=== PATIENT | female | born 1975 | race Caucasian/White ===

== ENCOUNTER → 2018-06-30 | Outpatient (CLI) | payer BC ==
--- NOTE | 2018-07-01 12:29 | MM ---
Reason for exam: screening (asymptomatic). Last mammogram was performed 3 years and 10 months ago. History: Patient is postmenopausal and has history of other cancer at age 29. Family history of breast cancer in grandmother. Took progesterone for 6 months. Physical Findings: A clinical breast exam by your physician is recommended on an annual basis and results should be correlated with mammographic findings. MG 3D Screening Mammo W/Cad Bilateral CC and MLO view(s) were taken. Prior study comparison: September 04, 2014, bilateral MG screening mammo w CAD. There are scattered fibroglandular densities. No significant changes when compared with prior studies. ASSESSMENT: Benign, BI-RAD 2 RECOMMENDATION: Routine screening mammogram of both breasts in 1 year.
== END | disposition home or self-care (01) ==
LOC: RADMAMWWP 07:01
PROVIDERS: ATTEND Family Medicine
DX: Z12.31 Encounter for screening mammogram for malignant neoplasm of breast (principal)
CPT/HCPCS: 77063; 77067

== ENCOUNTER → 2021-06-04 | Outpatient (CLI) | payer BC | END | disposition home or self-care (01) | LOC: LABWHC1 14:00 | PROVIDERS: ATTEND Emergency Medicine | DX: U07.1 COVID-19 (principal) | CPT/HCPCS: 87635; C9803 ==

== ENCOUNTER → 2021-08-01 | Outpatient (CLI) | payer OTHER ==
--- NOTE | 2021-08-01 13:12 | XR ---
EXAMINATION TYPE: XR pelvis AP view, XR Hip Complete RT DATE OF EXAM: 08/01/2021 CLINICAL HISTORY: Pelvic and right hip pain after fall injury 3 days ago. TECHNIQUE: A single AP view of the pelvis is obtained. Two views of the right hip are obtained. COMPARISON: None. FINDINGS: There is no acute fracture/dislocation evident in the pelvis. The hip and sacroiliac joints appear s ymmetric and within normal limits. . Pubic symphysis is intact . The overlying soft tissue is unremar kable. Two views of right hip show no acute fracture or dislocation. No focal lytic or sclerotic lesion see n in the proximal right femur. The overlying soft tissue is unremarkable. IMPRESSION: There is no acute fracture or dislocation in the pelvis or right hip.
--- NOTE | 2021-08-01 13:14 | XR ---
EXAMINATION TYPE: XR ankle complete RT, XR foot complete RT DATE OF EXAM: 08/01/2021 CLINICAL HISTORY: Recent injury with pain TECHNIQUE: Frontal, lateral and oblique images of the right ankle and foot are obtained. COMPARISON: None. FINDINGS: There is no acute fracture/dislocation evident in the right ankle. Well-defined bony frag ments inferior to the medial malleolus could reflect products of old injury. The ankle mortise appear s within normal limits. The overlying soft tissue appears unremarkable. There is no acute fracture or dislocation evident in the right foot. The joint spaces in the right f oot are preserved. Some flexion of the toes is present. Overlying soft tissue is unremarkable. IMPRESSION: There is no acute fracture or dislocation in the right ankle or foot.
--- NOTE | 2021-08-01 13:15 | XR ---
EXAMINATION TYPE: XR cervical spine 5 views comp, XR wrist complete 4 views RT, XR shoulder complete 3 views RT DATE OF EXAM: 08/01/2021 COMPARISON: None HISTORY: 46-year-old female with fall 3 days ago, multiple sites of pain. S13.4XXA,S70.01XA,S30.0XXA ,S93.401A,S93.601A,S43.4 FINDINGS: CERVICAL SPINE: Mild facet spurring. No significant bony neuroforaminal narrowing on either side. No predental space widening or prevertebral soft tissue swelling. Very mild endplate spondylosis C5-C6. Alignment is palomo ntained. Normal odontoid view. Right shoulder: AC joint appears intact. Subacromial space preserved. No tendinous or bursal calcifications. No acute fracture, subluxation, or dislocation. Right wrist: The radiocarpal and distal radioulnar joint as well as the midcarpal compartment appear intact. No ac [place] fracture, subluxation, or dislocation. IMPRESSION: 1. Cervical spine: Mild spondylotic change. No acute fracture or malalignment seen. 2. Right shoulder: No acute osseous abnormality seen. 3. Right wrist: No acute osseous abnormality seen.
--- NOTE | 2021-08-01 13:18 | XR ---
EXAMINATION TYPE: XR lumbar spine 3V, XR knee complete 3 views bilateral DATE OF EXAM: 08/01/2021 Comparison: None Clinical History: 46-year-old female with pain after fall S13.4XXA,S70.01XA,S30.0XXA,S93.401A,S93.601 A,S43.4 Findings: Lumbar spine: Mild multilevel degenerative disc disease especially thoracolumbar junction. Some facet arthropathy m id to lower lumbar spine. Vertebral body heights are preserved and alignment is maintained. Knees: There is mild tricompartmental degenerative spurring on both sides. Extensor mechanisms appear intact . Small bilateral knee joint effusions. No acute fracture, subluxation, or dislocation is seen. Impression: 1. Lumbar spine: Some facet arthropathy mid to lower lumbar spine. Mild degenerative disc disease. No vertebral compression collapse or malalignment. 2. Knees: Mild bilateral tricompartmental degenerative spurring. Small knee joint effusions appear to be present. No acute osseous abnormality seen. If pain persists, MRI can be considered.
== END | disposition home or self-care (01) ==
LOC: RADXRMAIN 11:32
PROVIDERS: ATTEND Emergency Medicine
DX: M76.891 Other specified enthesopathies of right lower limb, excluding foot (principal); M76.892 Other specified enthesopathies of left lower limb, excluding foot; M47.816 Spondylosis without myelopathy or radiculopathy, lumbar region; M51.36 Other intervertebral disc degeneration, lumbar region; S99.911A Unspecified injury of right ankle, initial encounter; S99.921A Unspecified injury of right foot, initial encounter; M25.531 Pain in right wrist; M25.511 Pain in right shoulder; M47.812 Spondylosis without myelopathy or radiculopathy, cervical region; S79.911A Unspecified injury of right hip, initial encounter; R10.2 Pelvic and perineal pain
CPT/HCPCS: 72050; 72100; 72170; 73502

== ENCOUNTER → 2021-08-02 | Outpatient (CLI) | payer BC, OTHER | END | disposition home or self-care (01) | LOC: LABWHC1 15:10 | PROVIDERS: ATTEND Emergency Medicine | DX: Z20.822 Contact with and (suspected) exposure to COVID-19 (principal) | CPT/HCPCS: 87635 ==

== ENCOUNTER → 2021-08-06 | Outpatient (CLI) | payer MEDICAID | END | disposition home or self-care (01) | LOC: LABWHC1 12:17 | PROVIDERS: ATTEND Family Medicine | DX: Z20.822 Contact with and (suspected) exposure to COVID-19 (principal) | CPT/HCPCS: U0003; C9803 ==

== ENCOUNTER → 2021-08-12 | Outpatient (CLI) | payer OTHER ==
--- NOTE | 2021-08-12 14:09 | XR ---
EXAMINATION TYPE: XR wrist complete 4 views RT, XR foot complete 3 views RT DATE OF EXAM: 08/12/2021 COMPARISON: NONE HISTORY: 46-year-old female with history of fall at work, pain right-sided navicular region. FINDINGS: Wrist: Radiocarpal and distal radial ulnar joint as well as the midcarpal compartment appear intact. No acut e fracture, subluxation, or dislocation. Right foot: Subtalar joint is aligned. Bony spurring along the anterior medial aspect of the tibiotalar joint. Ti ny posterior calcaneal spur. No acute fracture, subluxation, or dislocation. IMPRESSION: 1. Wrist: No acute osseous abnormality seen. 2. Foot: Chronic appearing posttraumatic versus degenerative spurring along the anteromedial aspect o f the tibiotalar joint. No acute osseous abnormality seen.
== END | disposition home or self-care (01) ==
LOC: RADXRMAIN 13:23
PROVIDERS: ATTEND Emergency Medicine
DX: M25.531 Pain in right wrist (principal); M79.671 Pain in right foot; S69.91XA Unspecified injury of right wrist, hand and finger(s), initial encounter; S99.921A Unspecified injury of right foot, initial encounter

== ENCOUNTER → 2021-08-19 | Outpatient (CLI) | payer OTHER ==
--- NOTE | 2021-08-19 13:00 | MR ---
EXAMINATION TYPE: MR shoulder RT wo con DATE OF EXAM: 08/19/2021 COMPARISON: Plain film 08/01/2021 HISTORY: Pain, Sprain of right shoulder TECHNIQUE: Multiplanar, multisequence imaging of the right shoulder is performed without contrast. FINDINGS: Rotator Cuff: There is abnormal thickening of the rotator cuff, abnormal increased intrinsic signal, no definite discrete tear Acromioclavicular Joint: Intact Glenohumeral Joint: Intact Labrum: The labrum appears grossly intact given limitation of non-arthrogram study. Biceps Tendon: The long head of biceps is in normal location within bicipital groove, fluid signal is present along the long head of biceps tendon. Bone marrow signal: There is subchondral increased signal on T2, intermediate signal in T1 signal, co adama image 15, sagittal image 18, some associated linear serpiginous low signal present on all pulse sequences. Question some minimal cortical irregularity at this level. Other: There is fluid signal along the subscapularis muscle. IMPRESSION: Findings may represent subchondral fracture involving the proximal humerus, there may be posttraumati c contusion involving the rotator cuff
== END | disposition home or self-care (01) ==
LOC: RADMRIMAIN 08:09
PROVIDERS: ATTEND Emergency Medicine
DX: S43.401A Unspecified sprain of right shoulder joint, initial encounter (principal)

== ENCOUNTER → 2021-09-02 | Outpatient (CLI) | payer OTHER ==
--- NOTE | 2021-09-03 04:28 | MR ---
EXAMINATION TYPE: MR hand RT wo con DATE OF EXAM: 09/02/2021 COMPARISON: None HISTORY: Right hand/wrist pain, swelling, clicking, and limited movement since 07-29-21. Patient state d specifically thumb/ 1st metacarpal pain. Multiplanar multiecho imaging of the right hand without contrast. There is 5 mm rounded fluid collection anterior to the PIP joint of the middle finger consistent with a small synovial cyst. There is similar finding at the PIP joint of the index finger. The phalanges appear intact. Metacarpals are intact. There is no evidence of metacarpal fracture. The carpal bones appear fairly normal. Intercarpal joint spaces are normal. Radiocarpal joint appears anatomic. I see no focal bone destruction. IMPRESSION: Small synovial cysts at the index finger and middle finger PIP joint. No fracture seen. No evidence o f any significant arthritic disease. No evidence of a solid mass.
== END | disposition home or self-care (01) ==
LOC: RADMRIMAIN 14:50
PROVIDERS: ATTEND Orthopaedic Surgery Hand Surgery
DX: M71.341 Other bursal cyst, right hand (principal)

== ENCOUNTER → 2021-09-06 | Outpatient (CLI) | payer OTHER ==
--- NOTE | 2021-09-07 03:46 | MR ---
EXAMINATION TYPE: MR ankle RT wo con DATE OF EXAM: 09/06/2021 COMPARISON: None HISTORY: Right ankle pain since 07-29-21 due to twisting foot at work and falling, eval peroneal tendo n tear Multiplanar multiecho imaging of the right ankle without contrast. Achilles tendon is intact. The medial and lateral flexor tendons of the ankle appear intact. The luis armando jamal tendon appears intact. There is no retraction. There is no fluid around the tendons. There is mild anterior ankle joint space narrowing. The collateral ligaments appear intact. There is a mild ankle joint effusion. There is fluid collect ion posterior to the ankle joint measuring 13 mm. There is no evidence of a fracture. Subtalar joint appears intact. Calcaneus is intact. IMPRESSION: There is mild ankle joint space narrowing with joint effusion consistent with some osteoarthritis and synovitis. No evidence of ligament or tendon tear.
== END | disposition home or self-care (01) ==
LOC: RADMRIMAIN 16:19
PROVIDERS: ATTEND Orthopaedic Surgery Foot and Ankle Surgery
DX: M25.471 Effusion, right ankle (principal)

== ENCOUNTER → 2022-02-19 | Outpatient (CLI) | payer MEDICAID ==
--- NOTE | 2022-02-20 09:50 | MM ---
Reason for Exam: Screening (asymptomatic). Last mammogram was performed 3 year(s) and 7 month(s) ago. Patient History: Menarche at age 10. First Full-Term at age 28. Late child-bearing (after 28). Hysterectomy at age 41. Postmenopausal. Other cancer, age 29. Progesterone for 6 months. Maternal grandmother had breast cancer at or over age 50. Risk Values: Pallavi 5 year model risk: 1.3%. NCI Lifetime model risk: 12.3%. Film Views: Bilateral CC views were taken. Bilateral MLO views were taken. Bilateral MLONIP views were taken. Prior Study Comparison: 09/04/2014 Bilateral Screening Mammogram, [facility]. 06/30/2018 Bilateral Screening Mammogram, [facility]. Tissue Density: There are scattered fibroglandular densities. Findings: Analyzed By CAD. NIPPLES ANGLE LATERALLY....MLO RN PALLIATIVE AC VIEWS ADDED There is no suspicious group of microcalcifications or new suspicious mass in either breast. Overall Assessment: Benign, BI-RAD 2 Management: Screening Mammogram of both breasts in 1 year. A clinical breast exam by your physician is recommended on an annual basis and results should be correlated with mammographic findings. Electronically signed and approved by: Braeden Nichole M.D. Radiologis
== END | disposition home or self-care (01) ==
LOC: RADMAMWWP 07:09
PROVIDERS: ATTEND Family Medicine
DX: Z12.31 Encounter for screening mammogram for malignant neoplasm of breast (principal); Z78.0 Asymptomatic menopausal state; Z80.3 Family history of malignant neoplasm of breast
CPT/HCPCS: 77063; 77067

== ENCOUNTER 2022-02-28 08:04 | Day surgery (SDC) | payer OTHER ==
[2022-02-26 15:04] VITALS: BMI 32.8
--- NOTE | 2022-02-27 08:56 | HP ---
HISTORY AND PHYSICAL CHIEF COMPLAINT: Right shoulder pain and stiffness. 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 She had a fall. She notes persistent pain, stiffness and weakness ever since. She has tried therapy in addition to medications, without much relief. She notes persistent problems. PAST MEDICAL HISTORY: Significant for hypercholesterolemia and factor V deficiency. PAST SURGICAL HISTORY: Significant for hysterectomy. CURRENT MEDICATIONS: Lipitor, aspirin, hydrocodone, Toradol, tramadol. ALLERGIES: SHE DENIES DRUG ALLERGIES. FAMILY HISTORY: Significant for heart disease and cancer. SOCIAL HISTORY: Negative for current tobacco or alcohol use. REVIEW OF SYSTEMS: Sixteen-point review of systems is otherwise reviewed and noncontributory. PHYSICAL EXAMINATION: On examination, the patient is approximately 5 feet 3 inches, 185 pounds of endomorphic habitus. HEENT exam is nonfocal. Neck is supple. On examination of the right shoulder, she is tender about the anterior subacromial space. She has moderate crepitus. Active range of motion: Forward elevation to 100 degrees, external rotation with the arm at the side 55 degrees, internal rotation to L3. Motor strength 5 minus over 5 for abduction and external rotation. Passively I am able to forward-elevate her to 140 degrees. Impingement test, Neer test and Speed test are positive. Her distal neurovascular exam appears intact in the right upper extremity. Previous MRI of the right shoulder shows evidence of rotator cuff thickening at its insertion along with questionable subchondral fracture involving the greater tuberosity. No discrete rotator cuff tear is noted. IMPRESSION: 1. Right rotator cuff strain/occult fracture of the greater tuberosity. 2. Right shoulder adhesive capsulitis, traumatic. RECOMMENDATIONS: I talked to the patient at length regarding her condition along with treatment options. At this point she remains quite symptomatic, having stiffness and pain despite conservative measures. After thorough discussion, she opts to proceed with surgery. We will plan to proceed with arthroscopic evaluation with probable subacromial decompression, possible rotator cuff debridement in addition to manipulation under anesthesia. We will likely perform that as an outpatient procedure. Risks and benefits were discussed at length in layman's terms. MMODL / IJN: [id number] /
[~2022-02-28 08:04] MED LIST: DEXAMETHASONE SOD PHOSPHATE 4 MG/ML 1 ML VIAL IV ONE; HYDROmorphone 0.5 MG/0.5 ML SYRINGE IVP PRN; LACTATED RINGERS 1,000 ML IV SCH; MIDAZOLAM 2 MG/2 ML VIAL IV PRN; ONDANSETRON 4 MG/2 ML VIAL IVP ONE; SCOPOLAMINE 1 MG/72 HR PATCH TRANSDERM ONE
[2022-02-28] MEDS ORDERED: MIDAZOLAM 2 MG/2 ML VIAL IVP ONE (09:17)
[2022-02-28] MEDS ORDERED: fentaNYL (PF) 50 MCG/ML 2 ML AMP IVP ONE (09:17)
--- NOTE | 2022-02-28 09:33 | P.ANPRN ---
Procedure Note - Anesthesia - Nerve Block Performed Right Interscalene Single Time Out Performed: Yes Date of Procedure: 02/28/22 Procedure Start Time: 09:16 Procedure Stop Time: :26 Location of Patient: PreOp Indication: Acute Post-Operative Pain, Requested by Surgeon Sedation Type: Sedate with meaningful contact maintained Preparation: Sterile Prep, Sterile Dressing Position: Sitting Catheter: None Needle Types: Pajunk Needle Gauge: 21 Ultrasound used to visualize needle placement: Yes Ultrasound used to observe medication spread: Yes Injectate: 0.5% Ropivacaine (see comment for volume) (30 ml + decadron 4 mg) Blood Aspirated: No Pain Paresthesia on Injection Noted: No Resistance on Injection: Normal Image Stored and Saved: Yes Events: Uneventful and Well Tolerated
[2022-02-28] MEDS ORDERED: SUCCINYLCHOLINE CHLORIDE 100 MG/5 ML SYR IV ONE (09:58)
[2022-02-28] MEDS ORDERED: PHENYLEPHRINE-0.9% NACL SYG 1,000 MCG/10 ML SYRINGE ONE (09:58)
[2022-02-28] MEDS ORDERED: DEXAMETHASONE SOD PHOSPHATE 4 MG/ML 1 ML VIAL ONE (09:58)
[2022-02-28] MEDS ORDERED: LIDOCAINE 2% INJ 20 MG/ML (2 ML VIAL) ONE (09:58)
[2022-02-28] MEDS ORDERED: MIDAZOLAM 2 MG/2 ML VIAL ONE (09:58)
[2022-02-28] MEDS ORDERED: ROPIVACAINE 5 MG/ML 30 ML VIAL ONE (09:58)
[2022-02-28] MEDS ORDERED: fentaNYL (PF) 50 MCG/ML 2 ML AMP ONE (09:58)
[2022-02-28] MEDS ORDERED: PROPOFOL 10 MG/ML 20 ML VIAL IV ONE (09:58)
[2022-02-28] MEDS ORDERED: EPINEPHrine (PF) 1 ML in SODIUM CHLORIDE 0.9% IRRIGATIO 3,000 ML IRRIGATION ONE ×8 (10:31)
--- NOTE | 2022-02-28 11:07 | P.OP ---
Date of Procedure: 02/28/22 Preoperative Diagnosis: Right shoulder impingement/rotator cuff strain Postoperative Diagnosis: Partial-thickness rotator cuff tear, superior labral tear Procedure(s) Performed: Right shoulder arthroscopic subacromial decompression/rotator cuff debridement /biceps tenotomy Anesthesia: edwin GARVIN Surgeon: Skinny Banks Emergency Vehicle Technician #1: Roshan Kemp Estimated Blood Loss (ml): 10 Pathology: none sent Condition: stable Disposition: PACU Indications for Procedure: The patient's a 47-year-old female presents with progressive right shoulder pain and weakness after an injury at work in July 2021. She tried conservative measures without much relief. A discussion of risks and benefits of operative intervention versus continued conservative measures was made with patient To proceed with surgery. Operative risks to include infection, neurovascular i njury, development of blood clots, possible incomplete resolution of symptoms, possible worsening symptoms and need for subsequent procedures was discussed. Informed consent was obtained. Operative Findings: As below Description of Procedure: The patient was brought to the operating room, and after induction of general anesthesia was placed in a beachchair position. A preoperative interscalene block was placed for postoperative analgesia. I examined the right shoulder. There was no gross block to passive motion or gross glenohumeral instability. The right upper extremity was prepped and draped in normal fashion. The bony outlines the acromion, distal clavicle, and coracoid process were outlined with a skin marker. The glenohumeral joint was inflated with 50 mL of saline utilizing a spinal needle from posterior approach. A posterior portal was made through a 5 mm skin incision 1 cm medial and inferior to the posterior lateral b order time. A blunt trocar was used to easily into the joint. Diagnostic arthroscopy was performed. An anterior portal was made just lateral to the coracoid process entering the joint above the subscapularis tendon. The subscapularis tendon appeared to be intact. Anterior labrum was intact. The inferior recess was inspected. The posterior labrum was intact. The biceps anchor appeared to be detached from the superior labrum. It was elected to proceed with biceps tenotomy at this point. This was released off the superior labrum and allowed to retract to the bicipital groove. On inspection the rotator cuff, a partial thickness tear involving the supraspinatus was noted involving 10-15% of the tendon thickness. This was debrided back to a stable base with a motorized shaver. The remaining rotator cuff was intact and stable. The arthroscope was placed into the subacromial space. A lateral portal was made 2 centimeters inferior to the anterior lateral border of the acromion. The soft tissue on the undersurface of the acromion was debrided with a motorized shaver and electrocautery clearly defining the anterior medial and lateral borders as well as the distal clavicle. An anterior inferior acromioplasty was performed with a motorized esau starting anterolateral, then extending this posteriorly, then extending this medially. I converted to a flat acromion and this was verified in the posterior and lateral viewing portals. The rotator cuff was inspected. There was bursal thickening that was debrided with motorized shaver. The rotator cuff appeared to be intact on the bursal surface. The arthroscope was then removed. The portals were closed with simple 3-0 nylon sutures. A sterile dressing was applied in addition to a sling. The patient was then awoken from general anesthesia and transferred to recovery room in good condition. Blood loss was estimated at 10 mL. No complications were incurred. Sponge and needle counts were correct in the case. Roshan GREENE assisted and the major components of the case to include positioning, decompression, and debridement.
[2022-02-28] MEDS: MEPERIDINE 50 MG/ML SYRINGE IVP ONE ×2 (11:40→11:48)
[2022-02-28] MEDS ORDERED: KETOROLAC 15 MG/ML 1 ML VIAL IVP ONE (11:54)
[2022-02-28 12:15] VITALS: TEMP 98.6
[2022-02-28] MEDS ORDERED: ONDANSETRON 4 MG/2 ML VIAL ONE (13:07)
[2022-02-28] MEDS ORDERED: ONDANSETRON 4 MG/2 ML VIAL IVP ONE (13:17)
[2022-02-28 15:08] VITALS: BP 117/77; PULSE 87; RESP 18
== END 2022-02-28 15:04 | disposition home or self-care (01) ==
LOC: OR 08:04
PROVIDERS: ATTEND Orthopaedic Surgery
DX: S46.011A Strain of muscle(s) and tendon(s) of the rotator cuff of right shoulder, initial encounter (principal); S43.431A Superior glenoid labrum lesion of right shoulder, initial encounter; W18.30XA Fall on same level, unspecified, initial encounter; E78.00 Pure hypercholesterolemia, unspecified; D68.2 Hereditary deficiency of other clotting factors; E78.5 Hyperlipidemia, unspecified; Z90.710 Acquired absence of both cervix and uterus; Z79.82 Long term (current) use of aspirin; Z79.891 Long term (current) use of opiate analgesic; Z79.899 Other long term (current) drug therapy; Z82.49 Family history of ischemic heart disease and other diseases of the circulatory system; Z80.9 Family history of malignant neoplasm, unspecified
CPT/HCPCS: 64415; 76942; 29823; J2250; J1100; J2175; J0690; J2405; J0171; J3010; J2795; J1885; J2370; J0330; J2704; J2001

== ENCOUNTER → 2022-06-25 | Outpatient (CLI) | payer OTHER ==
--- NOTE | 2022-06-27 05:50 | MR ---
EXAMINATION TYPE: MR ankle RT wo con DATE OF EXAM: 06/25/2022 COMPARISON: 09/06/2021 HISTORY: Rt ankle pain, swelling Multiplanar multi echo imaging of the right ankle performed without contrast. Ankle mortise is anatomic. There is some metal artifact at the distal fibula and also in the anterior talus. No fracture line seen. Collateral ligaments appear intact. There is ankle joint effusion. The medial and lateral flexor tendons appear intact. The Achilles tendon appears normal. The plantar fas melissa appears normal. The calcaneus appears intact. There is slight increased ankle joint fluid. The di stal tibia is intact. IMPRESSION: There is some artifact from surgery at the distal fibula and the anterior talus. Mild ankle joint eff usion. Mild ankle joint space narrowing. No fracture seen. Ankle joint effusion slightly increased co mpared to old exam.
== END | disposition home or self-care (01) ==
LOC: RADMRIMAIN 11:36
PROVIDERS: ATTEND Orthopaedic Surgery Foot and Ankle Surgery
DX: M93.271 Osteochondritis dissecans, right ankle and joints of right foot (principal); M25.471 Effusion, right ankle

== ENCOUNTER → 2022-08-26 | Outpatient (CLI) | payer OTHER ==
--- NOTE | 2022-08-27 08:13 | MR ---
EXAMINATION TYPE: MR shoulder RT wo con DATE OF EXAM: 08/26/2022 COMPARISON: Prior MRI right shoulder August 19, 2021 HISTORY: Pain after falling injury. TECHNIQUE: Multiplanar, multisequence imaging of the right shoulder is performed without contrast. FINDINGS: Rotator Cuff: Abnormal signal in the distal supraspinatus tendon which appears thickened is redemonst rated. There is even more prominent from prior study with areas of partial tearing now identified as there are some small fluid collections noted for reference coronal image 14 and sagittal image 22. In fraspinatus tendon remains intact. Rotator cuff muscle bulk preserved. Acromioclavicular Joint: Mild capsular hypertrophy. Underlying fat plane maintained. No significant spurring. Glenohumeral Joint: Small to moderate-sized joint effusion. No significant spurring. Labrum: Superior labrum now completely torn. Biceps Tendon: The long head of biceps is in normal location within bicipital groove. There is tear f rom the labral anchor thought present with remnant tendon having central increased signal coronal christian ge 9. Findings new from prior. Bone marrow signal: Tiny subchondral cystic change superolateral humeral head redemonstrated Other: No additional significant abnormality is appreciated. IMPRESSION: 1. Severe tendinopathy distal supraspinatus tendon redemonstrated. Areas of partial tearing now noted . 2. New superior labral tearing and long head of biceps disruption/tear from the labral anchor from pr ior MRI.
== END | disposition home or self-care (01) ==
LOC: RADMRIMAIN 10:46
PROVIDERS: ATTEND Orthopaedic Surgery
DX: M75.111 Incomplete rotator cuff tear or rupture of right shoulder, not specified as traumatic (principal)

== ENCOUNTER → 2022-09-01 | Outpatient (CLI) | payer OTHER ==
--- NOTE | 2022-09-01 14:32 | MR ---
EXAMINATION TYPE: MR cervical spine wo con DATE OF EXAM: 09/01/2022 1:14 PM COMPARISON: NONE HISTORY: Neck and right shoulder pain, headaches, S/P shoulder surgery February 2022. Multiplanar MultiSpin echo imaging of the cervical spine was performed. Comparison: none C2-C3: No evidence for degenerative disc disease. No disc bulge/herniation or protrusion. No Canal stenosis. Foramina are patent bilaterally. C3-C4: No evidence for degenerative disc disease. No disc bulge/herniation or protrusion. No Canal stenosis. Foramina are patent bilaterally. C4-C5: No evidence for degenerative disc disease. No disc bulge/herniation or protrusion. No Canal stenosis. Foramina are patent bilaterally. C5-C6: Mild decreased signal and loss of height compatible with degenerative disc disease. Mild poste rior disc bulge. Mild effacement ventral thecal sac without evidence for disc herniation or central s tenosis. The neural foramina appear patent bilaterally. C6-C7: Mild decreased signal and loss of height compatible with degenerative disc disease. Mild poste rior disc bulge. Mild effacement ventral thecal sac without evidence for disc herniation or central s tenosis. The neural foramina appear patent bilaterally. C7-T1: No evidence for degenerative disc disease. No disc bulge/herniation or protrusion. No Canal stenosis. Foramina are patent bilaterally. Cervical segments are intact. There is normal alignment. Cervical spinal cord is of normal signal. Craniovertebral junction relationships are within normal limits. IMPRESSION: 1. Degenerative disc disease with disc bulging
== END | disposition home or self-care (01) ==
LOC: RADMRIMAIN 12:24
PROVIDERS: ATTEND Orthopaedic Surgery
DX: M50.122 Cervical disc disorder at C5-C6 level with radiculopathy (principal)
CPT/HCPCS: 72141

== ENCOUNTER → 2022-12-16 | Outpatient (CLI) | payer MEDICAID ==
--- NOTE | 2023-01-20 06:22 | CE ---
CARDIAC ELECTROPHYSIOLOGY REPORT REFERRING PHYSICIAN: Dr. Espinoza. INDICATION: Cardiac arrhythmia. FINDINGS: The patient was monitored for 30 days. The baseline rhythm appeared to be sinus mechanism. The patient did have multiple episodes of paroxysmal atrial tachycardia. The patient did have multiple episodes of sinus tachycardia and sinus bradycardia. No advanced AV block noted. No significant sinus pause or sinus arrest seen. No evidence of any atrial fibrillation or atrial flutter. CONCLUSION: This is a 30-day event monitor. The baseline rhythm is sinus mechanism. The patient did have multiple episodes of paroxysmal atrial tachycardia. MMODL / IJN: [id number] /
== END | disposition home or self-care (01) ==
LOC: RADECHMAIN 11:29
PROVIDERS: ATTEND Internal Medicine Interventional Cardiology
DX: I47.1 Supraventricular tachycardia (principal); R00.2 Palpitations
CPT/HCPCS: 93270

== ENCOUNTER → 2022-12-16 | Outpatient (CLI) | payer MEDICAID ==
[2022-12-16 20:13] LABS: T4, Free (Free Thyroxine) 1.03 ng/dL (0.800-1.800)
== END | disposition home or self-care (01) ==
LOC: LABWHC1 11:06
PROVIDERS: ATTEND Internal Medicine Interventional Cardiology
DX: D68.51 Activated protein C resistance (principal); R06.02 Shortness of breath; R00.0 Tachycardia, unspecified
CPT/HCPCS: 36415; 84439; 84443

== ENCOUNTER → 2023-01-01 | Outpatient (CLI) | payer MEDICAID ==
--- NOTE | 2023-01-01 17:32 | CA ---
Transthoracic Echo Report Name: Yudith Diop Age: 47 Gender: F : 1975 Exam Date: 01/01/2023 11:24 Exam Location: [facility] Ht (in): 63 Wt (lb): 195 Ordering Physician: Gera Espinoza MD ([id number]) Attending/Referring Phys: Gera Espinoza MD ([id number]) [employer] Eveline Altman RDCS Procedure CPT: Indications: R00.2 Cardiac Hx: Technical Quality: Fair Contrast 1: Total Dose (mL): Contrast 2: Total Dose (mL): MEASUREMENTS (Male / Female) Normal Values 2D ECHO LV Diastolic Diameter PLAX 3.7 cm 4.2 - 5.9 / 3.9 - 5.3 cm LV Systolic Diameter PLAX 2.3 cm IVS Diastolic Thickness 1.0 cm 0.6 - 1.0 / 0.6 - 0.9 cm LVPW Diastolic Thickness 1.1 cm 0.6 - 1.0 / 0.6 - 0.9 cm LV Relative Wall Thickness 0.6 RV Internal Dim ED PLAX 3.0 cm LA Volume 45.4 cm??? 18 - 58 / 22 - 52 cm??? M-MODE Aortic Root Diameter MM 3.1 cm LA Systolic Diameter MM 3.8 cm LA Ao Ratio MM 1.2 AV Cusp Separation MM 1.9 cm DOPPLER AV Peak Velocity 101.7 cm/s AV Peak Gradient 4.1 mmHg AV Mean Velocity 77.4 cm/s AV Mean Gradient 2.6 mmHg AV Velocity Time Integral 21.5 cm LVOT Peak Velocity 104.7 cm/s LVOT Peak Gradient 4.4 mmHg LVOT Velocity Time Integral 22.4 cm MV Area PHT 3.6 cm??? Mitral E Point Velocity 76.0 cm/s Mitral A Point Velocity 63.3 cm/s Mitral E to A Ratio 1.2 MV Deceleration Time 209.1 ms MV E' Velocity 10.6 cm/s Mitral E to MV E' Ratio 7.2 TR Peak Velocity 217.2 cm/s TR Peak Gradient 18.9 mmHg Right Ventricular Systolic Press 22.8 mmHg FINDINGS Left Ventricle Normal Left ventricular size, wall thickness, systolic function with no obvious regional wall motion abnormalities. Normal Left ventricular diastolic filling pattern. Left ventricular ejection fraction is estimated at 55-60 %. Right Ventricle Normal right ventricular size and function. Right ventricular systolic pressure within normal limits. Right Atrium Normal right atrial size. Left Atrium Normal left atrial size. Interatrial septal aneurysm. Mitral Valve Structurally normal mitral valve. No mitral stenosis, regurgitation or prolapse. Aortic Valve Trileaflet aortic valve. No aortic valve stenosis or regurgitation. Tricuspid Valve Structurally normal tricuspid valve. Mild tricuspid regurgitation. Pulmonic Valve Structurally normal pulmonic valve. Pericardium No pericardial effusion. Possible fat pad Aorta Normal size aortic root and proximal ascending aorta. CONCLUSIONS Normal LV size and systolic function. Mildly aneurysmal interatrial septum. Normal right ventricle. Mild mitral and tricuspid regurgitation. No pericardial effusion. Possible fat pad. No significant pulmonary hypertension Previewed by: Dr. Jose Vora MD (Electronically Signed) Final Date: 01 January 2023 17:32
--- NOTE | 2023-01-01 17:42 | CA ---
Exercise Stress Test Report Name: Yudith Diop Exam Date: 01/01/2023 11:05 Exam Location: [facility] Ht (in): 63 Wt (lb): 195 BSA: 1.91 Ordering Phys: Gera Espinoza MD Referring Phys: Gera Espinoza MD Technologist: Jose R Cabrales Age: 47 Gender: F : 1975 Procedure CPT: Indications: R00.2 ICD-10 Codes: Patient History: CHEST PAIN, DIFFICULTY IN BREATHING, PALPITATIONS, ELEVATED CHOLESTEROL LEVELS, FAMILY HX OF HEART DISEASE Medications: ATORVASTATIN, ASA, LIPITOR, TRAMADOL, TYLENOL Meds past 24 hrs: Pretest Chest Pain: STRESS TEST [facility] Protocol Exercise Duration (min:sec): 10:[address] Depressions (mm): Angina Score: Petty Score: Resting HR (bpm): 79 Peak HR (bpm): 167 Resting BP (mmHg): 117 / 84 Peak BP (mmHg): 191 / 70 MPHR: 171 Target HR: 145 % MPHR: 98 METS: 11.7 Total Dose: Peak Dose: Atropine: Double Product: 61147 BP Response: Stress Termination: MAX EXERTION/TARGET HR Stress Symptoms: NO SYMPTOMS Stress Summary: ECG ANALYSIS Resting ECG: Stress ECG: CONCLUSIONS Patient walked on a standard Wili protocol for a total duration of 10 minutes and achieved a maximum heart rate of 165 bpm which is more than 85% of predicted maximal. Baseline EKG revealed a normal sinus rhythm without significant ST-T changes. Patient did not have any anginal symptoms. Peak EKG as well as in recovery there were no ST segment changes to indicate ischemia. This is a negative stress test with excellent exercise capacity. The blood pressure changed from 117/84 -160/75 Dr. Jose Vora MD (Electronically Signed) Final Date: 01 January 2023 17:41
== END | disposition home or self-care (01) ==
LOC: RADNMMAIN 10:33
PROVIDERS: ATTEND Internal Medicine Interventional Cardiology
DX: I08.1 Rheumatic disorders of both mitral and tricuspid valves (principal); R00.2 Palpitations; Q21.10 Atrial septal defect, unspecified
CPT/HCPCS: 93017; 93306

== ENCOUNTER → 2023-01-02 | Outpatient (CLI) | payer OTHER, MEDICAID ==
[2023-01-02 15:19] LABS: Basophils # (A) 0.02 X 10*3/uL (0.00-0.10); Basophils % (A) 0.5 %; Eosinophils # (A) 0.13 X 10*3/uL (0.04-0.35); HCT 44.7 % (37.2-46.3); HGB 14.7 g/dL (12.0-15.0); Immature Grans, Automated 0.2 %; Lymphocytes # (A) 1.64 X 10*3/uL (0.90-5.00); Lymphocytes % (A) 37.4 %; MCH 30.7 pg (27.0-32.0); MCHC 32.9 g/dL (32.0-37.0); MCV 93.3 fL (80.0-97.0); Monocytes # (A) 0.28 X 10*3/uL (0.20-1.00); Monocytes % (A) 6.4 %; NRBC Per 100 WBC 0 /100 WBCS (0.0-0.0); Neutrophils % (A) 52.5 %; Platelet Count 253 X 10*3/uL (140-440); RBC 4.79 X 10*6/uL (4.10-5.20); RDW 12.2 % (11.5-14.5); WBC 4.38 X 10*3/uL (4.50-10.00)
[2023-01-02 15:37] LABS: African American GFR (CKD) 109.5 (60.0-200.0); Anion Gap 10.6 mmol/L (10.00-18.00); BUN/Creat Ratio 20.3 Ratio (12.00-20.00); Blood Urea Nitrogen 15.1 mg/dL (9.0-27.0); Calcium 9.3 mg/dL (8.7-10.3); Carbon Dioxide 26.6 mmol/L (20.0-27.5); Non-African American GFR(CKD) 94.5 (60.0-200.0); Potassium 4.5 mmol/L (3.5-5.5)
== END | disposition home or self-care (01) ==
LOC: LABWHC1 09:13
PROVIDERS: ATTEND Orthopaedic Surgery
DX: Z01.812 Encounter for preprocedural laboratory examination (principal); M75.41 Impingement syndrome of right shoulder
CPT/HCPCS: 36415; 80048; 85025

== ENCOUNTER 2023-01-09 09:04 | Day surgery (SDC) | payer MEDICAID, OTHER ==
--- NOTE | 2023-01-08 08:25 | P.HPOR ---
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 Subsequently she underwent right shoulder arthroscopy with biceps tenotomy and rotator cuff debridement using 2021. She's had increasing pain despite adequate rehabilitation. She is having pain with overhead use and at night. 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 History of Any Multi-Drug Resistant Organisms: None Reported Past Surgical History: Hysterectomy, Orthopedic Surgery (Right shoulder arthroscopy) Additional Past Surgical History / Comment(s): OCT 2021- RIGHT ANKLE TENDON REPAIR., ABDOMINALPLASTY(2009) Past Anesthesia/Blood Transfusion Reactions: No Reported Reaction, Motion Sickness Additional Past Anesthesia/Blood Transfusion Reaction / Comment(s): NERVOUS ABOUT AXILLARY BLOCK, LAST SURGERY PHRENIC NERVE WAS AFFECTED,BECAME SOB. Past Psychological History: No Psychological Hx Reported Smoking Status: Never smoker Past Alcohol Use History: None Reported Past Drug Use History: None Reported - Past Family History Father Family Medical History: Blood Disorder, Deep Vein Thrombosis (DVT), Pulmonary Embolus Additional Family Medical History / Comment(s): FACTOR 5 LEIDEN- AT AGE 49 FROM DVT AND PE. Medications and Allergies Home Medications Medication Instructions Recorded Confirmed Type Aspirin [Adult Low Dose Aspirin EC] 81 mg PO DAILY 02/26/22 01/05/23 History traMADol HCL 50 mg PO BID PRN 02/26/22 01/05/23 History Atorvastatin [Lipitor] 10 mg PO HS 01/05/23 01/05/23 History Allergies Allergy/AdvReac Type Severity Reaction Status Date / Time No Known Allergies Allergy Verified 01/05/23 13:20 Physical Examination - Shoulder right Tenderness with palpation: anterior Pain: with abduction, with forward flexion ROM: forward flexion: 100 degrees (100 actively, 145 passively) ROM: external rotation: 60 degrees Crepitus with motion: Yes Strength: abduction: 5/5 Strength: external rotation: 5/5 Tests: internal impingement tests: positive Results The patient is a well-developed well-nourished female, proximally 5 foot 3, 192 pounds of endomorphic habitus. HEENT exam is nonfocal, she has limited C-spine motion with positive Spurling's. She is nontender about the right elbow and wrist. Her distal neurovascular appears intact right upper extremity. - Diagnostic results Shoulder MRI: image reviewed (Right shoulder MRI from 08/26/2022 shows severe tendinopathy of the supraspinatus.) Assessment and Plan Assessment: Right shoulder impingement/rotator cuff tendinopathy/possible partial thickness tear Plan: I talked to the patient regarding her condition along with treatment options. She's tried extensive rehabilitation after her prior arthroscopy with persistence of her symptoms. After thorough discussion she has proceed with surgery. We'll plan to proceed with right shoulder arthroscopy with possible revision subacromial decompression along with bursectomy/rotator cuff debridement versus repair. Risks and benefits were discussed in layman's terms. We will perform that as an outpatient procedure.
[~2023-01-09 09:04] MED LIST changes: -HYDROmorphone 0.5 MG/0.5 ML SYRINGE IVP PRN; +LIDOCAINE 1% (10MG/ML) FOR IV START INTRADERMA PRN; -SCOPOLAMINE 1 MG/72 HR PATCH TRANSDERM ONE
[2023-01-09] MEDS ORDERED: MIDAZOLAM 2 MG/2 ML VIAL IVP ONE (10:51)
[2023-01-09] MEDS ORDERED: ROPIVACAINE 5 MG/ML 30 ML VIAL ONE (11:10)
[2023-01-09] MEDS ORDERED: SUCCINYLCHOLINE CHLORIDE 200 MG/10 ML VIAL IV ONE (11:10)
[2023-01-09] MEDS ORDERED: SODIUM CHLORIDE 0.9% (PF) 10 ML VIAL ONE (11:10)
[2023-01-09] MEDS ORDERED: MIDAZOLAM 2 MG/2 ML VIAL ONE (11:10)
[2023-01-09] MEDS ORDERED: PHENYLEPHRINE-0.9% NACL SYG 1,000 MCG/10 ML SYRINGE ONE (11:10)
[2023-01-09] MEDS ORDERED: LIDOCAINE 4% LTA KIT (4 ML) TOPICAL ONE (11:10)
[2023-01-09] MEDS ORDERED: LIDOCAINE 2% INJ 20 MG/ML (2 ML VIAL) ONE (11:10)
[2023-01-09] MEDS ORDERED: fentaNYL (PF) 50 MCG/ML 2 ML AMP ONE (11:10)
[2023-01-09] MEDS ORDERED: PROPOFOL 10 MG/ML 20 ML VIAL IV ONE (11:10)
[2023-01-09] MEDS ORDERED: EPINEPHrine (PF) 1 ML in SODIUM CHLORIDE 0.9% IRRIGATIO 3,000 ML IRRIGATION ONE ×8 (11:15)
--- NOTE | 2023-01-09 12:55 | P.ANPRN ---
Procedure Note - Anesthesia - Nerve Block Performed Right Interscalene Single Time Out Performed: Yes Date of Procedure: 01/09/23 Procedure Start Time: 10:50 Procedure Stop Time: 10:54 Location of Patient: PreOp Indication: Acute Post-Operative Pain, Requested by Surgeon Sedation Type: Sedate with meaningful contact maintained Preparation: Sterile Prep Position: Supine Needle Types: Pajunk Ultrasound used to visualize needle placement: Yes Ultrasound used to observe medication spread: Yes Blood Aspirated: No Pain Paresthesia on Injection Noted: No Resistance on Injection: Normal Image Stored and Saved: Yes Events: Uneventful and Well Tolerated (Ropivacaine 0.5% 20 mL plus dexamethasone 4 mg)
--- NOTE | 2023-01-09 13:03 | P.OP ---
Date of Procedure: 01/09/23 Preoperative Diagnosis: Right rotator cuff tendinosis/partial thickness tear Postoperative Diagnosis: Same Procedure(s) Performed: Right shoulder arthroscopic revision subacromial decompression/rotator cuff debridement/rotator cuff repair Implants: Arthrex 4.75 mm swivel lock anchor 2 Anesthesia: edwin GARVIN Surgeon: Skinny Banks Human Resources Support Specialist #1: Roshan Kemp Estimated Blood Loss (ml): 10 Pathology: none sent Condition: stable Disposition: PACU Indications for Procedure: The patient's a 47-year-old female who presents with persistent/progressive right shoulder pain despite previously undergoing arthroscopy with subacromial decompression and biceps tenotomy. She underwent adequate rehabilitation with worsening of her symptoms. A discussion of the risks and benefits of operative intervention versus continued conservative measures was made with patient. She opted to proceed with surgery. Operative risks to include infection, neurovascular injury, development of blood clots, possible postoperative stiffness, possible need for subsequent procedures was discussed. Informed consent was obtained. Operative Findings: As below Description of Procedure: The patient was brought to the operating room, and after induction of general anesthesia was placed in a beachchair position. A preoperative interscalene block was placed for postoperative analgesia. I examined the right shoulder. There was no gross block to passive motion or gross glenohumeral instability. The right upper extremity was prepped and draped in normal fashion. The bony outlines the acromion, distal clavicle, and coracoid process were outlined with a skin marker. The glenohumeral joint was inflated with 50 mL of saline utilizing a spinal needle from posterior approach. A posterior portal was made through a 5 mm skin incision 1 cm medial and inferior to the posterior lateral border time. A blunt trocar was used to easily into the joint. Diagnostic arthroscopy was performed. An anterior portal was made just lateral to the coracoid process entering the joint above the subscapularis tendon. The subscapularis tendon appeared to be intact. Anterior labrum was intact. The inferior recess was inspected. The posterior labrum was intact. The previous biceps tenotomy was noted with scarring of the biceps in the bicipital groove. On inspection the rotator cuff, it appeared to be intact on the articular surface. The arthroscope was placed into the subacromial space. The soft tissue on the undersurface of the acromion was debrided with a motorized shaver and electrocautery clearly defining the anterior medial and lateral borders as well as the distal clavicle. I did resect the anterior aspect of the acromion with a motorized esau. The coracoacromial ligament was detached with electrocautery. Attention was then paid towards the rotator cuff. A high-grade partial-thickness tear involving the bursal surface of the posterior supraspinatus and anterior infraspinatus was noted. This was probed and felt to involve approximately 80% of the tendon thickness. I did take down the remainder of the attachment with a motorized shaver and prepared the greater tuberosity down to a bleeding bony surface. An accessory superior lateral portal was made just off the lateral edge of the acromion for anchor placement. A 4.75 mm swivel lock anchor was placed just off the articular surface. Good purchase was obtained. #2 fiber tapes were passed through the rotator cuff with a schappin!ion suture passer. A lateral anchor was placed with the appropriate starting awl. A 4.75 mm anchor was inserted with good purchase. The sutures were appropriately tensioned. Final arthroscopic view showed adequate compression at the footprint. The remaining rotator cuff appeared to be intact and stable. The arthroscope was then removed. The portals were closed with simple 3-0 nylon sutures. A sterile dressing was applied in addition to a sling. The patient was then awoken from general anesthesia and transferred to recovery room in good condition. Blood loss was estimated at 10 mL. No complications were incurred. Sponge and needle counts were correct in the case. Roshan GREENE assisted and the major components of the case to include arm positioning, anchor placement, and rotator cuff repair.
[2023-01-09 13:19] VITALS: TEMP 97
[2023-01-09] MEDS: HYDROmorphone 0.5 MG/0.5 ML SYRINGE IVP PRN ×2 (13:22→13:31)
[2023-01-09 13:52] VITALS: RESP 18
[2023-01-09] MEDS ORDERED: HYDROcodone/APAP 10-325MG 1 EACH TAB ONE (14:07)
[2023-01-09] MEDS ORDERED: HYDROcodone/APAP 10-325MG 1 EACH TAB PO ONE (14:11)
[2023-01-09 14:44] VITALS: BP 104/60; PULSE 82
== END 2023-01-09 15:27 | disposition home or self-care (01) ==
LOC: OR 09:04
PROVIDERS: ATTEND Orthopaedic Surgery
DX: M75.111 Incomplete rotator cuff tear or rupture of right shoulder, not specified as traumatic (principal); D68.51 Activated protein C resistance; G89.18 Other acute postprocedural pain; Z87.442 Personal history of urinary calculi; Z85.828 Personal history of other malignant neoplasm of skin; Z98.890 Other specified postprocedural states; Z79.82 Long term (current) use of aspirin; Z79.899 Other long term (current) drug therapy
CPT/HCPCS: 29827; 29826; 64415; 76942; C1713 ×2; C1894; J2250; J0330; J1100; J0690; J2405; J0171; J3010; J2795; J2370; J2704; J1170; J2001

== ENCOUNTER 2023-02-16 08:41 | Day surgery (SDC) | payer MEDICAID, OTHER ==
[2023-02-16 09:04] VITALS: TEMP 97.7
[2023-02-16] MEDS ORDERED: SODIUM CHLORIDE 0.9% 500 ML 500 ML IV ONE (09:04)
[2023-02-16] MEDS ORDERED: fentaNYL (PF) 50 MCG/ML 2 ML AMP ONE (10:33)
[2023-02-16] MEDS: BENZOCAINE SPRAY 1 CAN MUCOUS MEM ONE ×2 (10:44→10:53)
[2023-02-16] MEDS ORDERED: MIDAZOLAM 2 MG/2 ML VIAL IV ONE (10:54)
[2023-02-16] MEDS: fentaNYL (PF) 50 MCG/ML 2 ML AMP IV ONE ×2 (10:54→10:58)
[2023-02-16] MEDS: MIDAZOLAM 2 MG/2 ML VIAL IV ONE ×2 (10:58→11:01)
[2023-02-16 11:12] VITALS: RESP 16
--- NOTE | 2023-02-16 11:17 | P.PCN ---
Date of Procedure: 02/16/23 Operative Findings: TRANSESOPHAGEAL ECHOCARDIOGRAM ADJUNCT SPANISH INSTRUCTOR: ZEV MÁRQUEZ MD, RPVI INDICATION: Rule out patent foramen ovale in this patient has hypercoagulopathy and she is currently on anticoagulation SEDATION: Conscious sedation COMPLICATION: None LEVEL OF SEDATION Moderate to sedation length of 16 minutes PROCEDURE DESCRIPTION: After obtaining an informed consent, the patient was brought to transesophageal echocardiogram room. Pulse oximetry and heart monitors were attached to the patient. The patient throat was sprayed using lidocaine. The patient was turned into left lateral position. After that a bite guard was placed. After an appropr iate conscious sedation was initiated, the transesophageal echocardiogram was advanced through a bite guard into the mid esophagus. A 2-D echocardiogram images, color Doppler images, continuous wave images, pulse-wave images, of various cardiac structure were performed. After that the transesophageal echocardiogram probe was advanced into the stomach and fixed to obtain transgastric view was. The probe was brought into the mid esophagus. Inter-atrial septum was interrogated using 2D images, color Doppler images, and then contrast study. After that transesophageal echocardiogram was withdrawn out and upon withdrawing the descending thoracic aorta all the way up to the arch was evaluated. FINDING: Left ventricular dimension and systolic function appeared to be within normal limits. The ejection fraction appears to be in the range of 55-60%. The right ventricle is of normal size and function. The left atrial appendage appeared to be mildly dilated. The interatrial septum appeared to be extremely aneurysmal was evidence of patent foramen ovale and [id number] shunt noted. The aortic valve is trileaflet valve with no stenosis or regurgitation with mitral valve appeared to be normal with mild MR. Normal tricuspid valve and pulmonic valve. No evidence of pericardial effusion CONCLUSION: 1. Aneurysmal interatrial septum was evidence off [id number] shunt noted with patent foramen ovale 2. Intact left atrial appendage with no evidence of any thrombus 3. Normal biventricular dimension and systolic function 4. Normal intracardiac valves 5. No evidence of pericardial effusion
[2023-02-16 12:05] VITALS: BP 102/59; PULSE 72
== END 2023-02-16 12:12 | disposition home or self-care (01) ==
LOC: CATHCVL 08:41
PROVIDERS: ATTEND Internal Medicine Interventional Cardiology
DX: Q21.10 Atrial septal defect, unspecified (principal)
CPT/HCPCS: 93312; 93320; 93325; J2250; J3010

== ENCOUNTER → 2023-03-05 | Outpatient (CLI) | payer MEDICAID ==
[2023-03-05 17:39] LABS: ALT 23 U/L (8-44); AST 20 U/L (13-35); Chol/HDL Ratio 4.24 Ratio; LDL Cholesterol,Calculated 144.8 mg/dL (0.0-131.0)
== END | disposition home or self-care (01) ==
LOC: LABWHC1 07:42
PROVIDERS: ATTEND Internal Medicine Interventional Cardiology
DX: E78.2 Mixed hyperlipidemia (principal)
CPT/HCPCS: 36415; 80061; 84450; 84460

== ENCOUNTER → 2023-08-13 | Outpatient (CLI) | payer MEDICAID ==
[2023-08-14 02:36] LABS: HCT 45.1 % (37.2-46.3); HGB 14.4 g/dL (12.0-15.0); MCH 30.5 pg (27.0-32.0); MCHC 31.9 g/dL (32.0-37.0); MCV 95.6 FL (80.0-97.0); Mean Platelet Volume 10.7 FL (9.5-12.2); NRBC Per 100 WBC 0 X 10*3/uL (0.00-0.01); Platelet Count 274 X 10*3/uL (140-440); RBC 4.72 X 10*6/uL (4.10-5.20); RDW 12.4 % (11.5-14.5); WBC 5.62 X 10*3/uL (4.50-10.00)
[2023-08-14 02:44] LABS: ALT 20 U/L (8-44); AST 21 U/L (13-35); Albumin 4.3 g/dL (3.8-4.9); Albumin/Globulin Ratio 1.59 Ratio (1.60-3.17); Alkaline Phosphatase 73 U/L (41-126); BUN/Creat Ratio 18.57 Ratio (12.00-20.00); Carbon Dioxide 26.6 mmol/L (21.6-31.8); Chloride 103 mmol/L (96-109); Chol/HDL Ratio 5.24 Ratio; Estradiol 27.9 pg/mL; Globulin 2.7 g/dL (1.6-3.3); Glucose 86 mg/dL (70-110); LDL Cholesterol,Calculated 164.5 mg/dL (0.0-131.0); Potassium 4.4 mmol/L (3.5-5.5); Sodium 138 mmol/L (135-145); Total Bilirubin 0.6 mg/dL (0.3-1.2)
[2023-08-14 03:03] LABS: Follicle Stimulating Hormone 25.5 mIU/mL; Luteinizing Hormone 19.7 mIU/mL
== END | disposition home or self-care (01) ==
LOC: LABWHC1 13:12
PROVIDERS: ATTEND Family Medicine
DX: E78.5 Hyperlipidemia, unspecified (principal); R53.83 Other fatigue; R73.09 Other abnormal glucose
CPT/HCPCS: 36415; 80053; 80061; 82670; 83001; 83002; 83036; 84443; 85027

== ENCOUNTER → 2023-08-13 | Outpatient (CLI) | payer MEDICAID, OTHER ==
--- NOTE | 2023-08-13 15:20 | P.SLEEP ---
History of Present Illness DATE: 08/13/2023 CONSULTATION/NEW PATIENT EVALUATION HISTORY OF PRESENT ILLNESS/SLEEP-WAKE EVALUATION: 48-year-old lady had been ev aluated in the sleep center for possible obstructive sleep apnea hypopnea syndrome. SLEEP SCHEDULE: Usually sleep schedule from 10 PM to 6:30 AM on weekdays and from 10 PM to 7 AM on weekend. FALLING ASLEEP: Patient has difficulties with the falling asleep, although no TV in bedroom. DURING SLEEP: Patient usually sleeps on the side position with snoring, episodes of palpitations and awakenings from sleep up to 3 times with one episode of nocturia. No history of hypnogogical hallucinations, sleep paralysis, or cataplexy. DURING THE DAY/WAKE STATE: []. [place] sleepiness scale is 7. Usually patient doesn't take any naps. PAST MEDICAL HISTORY: Episodes of atrial tachycardia, hyperlipidemia, factor V Leyden deficiency, patient foramen ovaleatrial septal defect. PAST SURGICAL HISTORY: Right shoulder surgery for rotator cuff in 2022 and right ankle surgery. MEDICATIONS: Aspirin 81 mg once a day, Lipitor 20 mg once a day, tramadol 50 mg. SOCIAL HISTORY: Negative for smoking, alcohol consumption occasional. FAMILY HISTORY: Hypertension, heart problems, cancer, snoring. REVIEW OF SYSTEMS: Snoring, multiple awakenings from sleep. No fevers. No double vision. No recent chest pain. No shortness of breath. No abdominal pain. No bleeding episodes. No blood in urine. No seizure episodes. PHYSICAL EXAMINATION: GENERAL: A pleasant patient without any distress. VITAL SIGNS: BP 121/84, HR 68, RR 16, weight 202 pounds, height 5 foot to inches, body mass index 36.9. HEENT: PERRLA, EOMI. Evaluation of oropharynx showed tongue protrudes midline, position of soft palate Mallampati 2. NECK: Supple. No JVD. Thyroid is not palpable. 15.5 inches in circumference. LUNGS: Clear to percussion and to auscultation. Good air exchange. No wheezing or rhonchi. HEART: S1, S2 regular. No murmurs, gallops or rubs. ABDOMEN: Soft and nontender. Bowel sounds are present. No organomegaly appreciated. EXTREMITIES: No clubbing or cyanosis. DIGITAL MEDIA ANALYST: Awake, alert, and oriented x3. Cranial nerves 2 to 7 intact. There is no fasciculation or atrophy noted. No focal deficits observed. ASSESSMENT: 1. Snoring, multiple awakenings from sleep. Possible obstructive sleep apnea hypopnea syndrome. 2. Obesity BMI 36.9. 3. History of episodes of atrial tachycardia. 4. Patient foramen ovale/atrial septal defect. 5 hyperlipidemia. 6 . Status post right shoulder surgery for rotator cuff problems in 2022. 7. History of factor V Leyden deficiency. 8. Status post right ankle surgery. PLAN: 1. Polysomnography for evaluation of patient's breathing during sleep. 2. Following plan after reading sleep study. 3. Preferable position during sleep on the side. 4. No driving if patient feels any sleepiness. Patient is aware of civil and criminal liability for unsafe driving. 5. Sleep hygiene with regular sleep time for at least 7.5-8 hours. 6. Watching and losing weight. Thank you very much for referring this patient for consultation. Sincerely, Navid Hoffmann MD, PhD, FAASM. 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 Past Anesthesia/Blood Transfusion Reactions: No Reported Reaction, Motion Sickness, Postoperative Nausea & Vomiting (PONV) Additional Past Anesthesia/Blood Transfusion Reaction / Comment(s): NERVOUS ABOUT AXILLARY BLOCK, LAST SURGERY PHRENIC NERVE WAS AFFECTED,BECAME SOB. Smoking Status: Never smoker - Past Family History Father Family Medical History: Blood Disorder, Deep Vein Thrombosis (DVT), Pulmonary Embolus Additional Family Medical History / Comment(s): FACTOR 5 LEIDEN- AT AGE 49 FROM DVT AND PE. Medications and Allergies Home Medications Medication Instructions Recorded Confirmed Type Aspirin [Adult Low Dose Aspirin EC] 81 mg PO DAILY 02/26/22 02/16/23 History Atorvastatin [Lipitor] 10 mg PO HS 01/05/23 02/16/23 History HYDROcodone/APAP 10-325MG [[place] 1 tab PO Q6HR PRN #28 tab 01/09/23 02/16/23 Rx 10-325] Allergies Allergy/AdvReac Type Severity Reaction Status Date / Time No Known Allergies Allergy Verified 02/16/23 08:54 Sleep Note - Sleep Note Sleep Note: Temperature: Pulse Rate: Respiratory Rate: Blood Pressure: SpO2: Height: Weight: BMI: Neck Circumference:
== END ==
LOC: 3 N SLEEP 14:22
PROVIDERS: ATTEND Internal Medicine
DX: R06.83 Snoring (principal); E66.9 Obesity, unspecified; Q21.10 Atrial septal defect, unspecified; E78.5 Hyperlipidemia, unspecified; D68.59 Other primary thrombophilia; Z68.39 Body mass index [BMI] 39.0-39.9, adult; Z98.890 Other specified postprocedural states; Z86.79 Personal history of other diseases of the circulatory system
CPT/HCPCS: 99211

== ENCOUNTER → 2023-08-14 | Outpatient (CLI) | payer MEDICAID ==
--- NOTE | 2023-08-17 09:04 | MM ---
Reason for Exam: Screening (asymptomatic). Last mammogram was performed 1 year(s) and 6 month(s) ago. Patient History: Menarche at age 10. First Full-Term at age 28. Late child-bearing (after 28). Hysterectomy at age 41. Postmenopausal. Other cancer, age 29. Progesterone for 6 months. Maternal grandmother had breast cancer at or over age 50. Risk Values: Pallavi 5 year model risk: 1.3%. NCI Lifetime model risk: 12.1%. Prior Study Comparison: 09/04/2014 Bilateral Screening Mammogram, [facility]. 06/30/2018 Bilateral Screening Mammogram, [facility]. 02/19/2022 Bilateral MG 3D screening mammo w/cad, [facility]. Tissue Density: The breast tissue is almost entirely fat. Findings: Analyzed By CAD. There is no suspicious group of microcalcifications or new suspicious mass. Overall Assessment: Negative, BI-RAD 1 Management: Screening Mammogram of both breasts in [address] [facility] will attempt to contact patient to return for supplemental views and ultrasound if indicated. Patient should continue monthly self-breast exams. A clinical breast exam by your physician is recommended on an annual basis. This exam should not preclude additional follow-up of suspicious palpable abnormalities. Note on Pallavi scores and lifetime risk: 1. A Pallavi score greater than 3% is considered moderate risk. If this is the case, consider specialist referral to assess eligibility for a risk reducing agent. 2. If overall lifetime risk for the development of breast cancer is 20% or higher, the patient may qualify for future screening with alternating mammogram and breast MRI. Electronically signed and approved by: Irvin Mckeon DO
== END | disposition home or self-care (01) ==
LOC: RADMAMWWP 16:22
PROVIDERS: ATTEND Family Medicine
DX: Z12.31 Encounter for screening mammogram for malignant neoplasm of breast (principal); Z78.0 Asymptomatic menopausal state; Z80.3 Family history of malignant neoplasm of breast
CPT/HCPCS: 77063; 77067

== ENCOUNTER 2023-08-17 19:27 | Outpatient (CLI) | payer MEDICAID ==
--- NOTE | 2023-08-19 12:44 | P.PCN ---
Description of Procedure: POLYSOMNOGRAPHY REPORT PROCEDURE(S)/DATE(S): Polysomnography 08/17/2023 CLINICAL: Patient has been seen in the sleep center for evaluation of obstructive sleep apnea-hypopnea syndrome. Please see my consultation. Sleep study has been done for evaluation of patient breathing during the sleep. PROCEDURE: The standard montage for clinical polysomnography included the electroencephalogram, the electrooculogram, the mentalis surface electromyography and Lead II cardiography. The respiratory battery consisted of measurements of nasal/buccal air flow, pressure transducer measurements from nose, thoracic and/or abdominal effort and intercostal surface electromyography. Video monitoring has been done to check for any parasomnia events. Nocturnal oxyhemoglobin saturations were obtained by finger oximetry. Step-aranda titration with positive airway pressure was utilized to control the respiratory events, if necessary. RESULTS: During the diagnostic sleep study sleep efficiency was normal 91.8 %. Latency to sleep onset was normal 22.5 min. Sleep architecture showed stage NI normal 4.9 %, Delta sleep was short 3.1 %, REM sleep was short 12.4 %. Respiratory channel showed 0 obstructive apneas, 0 mixed apneas, 0 central apneas, 15 hypopneas REM with lowest oxygen level 87.%. Total apnea hypopnea index was 2.3. Heart rate was in the range between 51 and 64, average 57. EMG showed 0 periodic limb movements per hour. IMPRESSIONS: 1. No significant respiratory abnormalities have been documented during the sleep study. 2. No significant periodic limb movements have been documented. Please see other impressions from consultation PLAN: 1.Sleep hygiene with regular time in bed for at least 7-1/2 hours. . 2. Losing weight program. 3. No driving if feeling sleepiness. 4. I will see patient for follow-up visit to explain results of the test. Thank you very much for allowing me to participate in the management of your patient. Sincerely, Navid Hoffmann MD, PhD, FAASM. Diplomat of [place] [employer], Sleep Medicine Board by [place] [employer] [place] Operator of [facility] [place]
== END 2023-08-18 06:20 | disposition home or self-care (01) ==
LOC: 3 N SLEEP 19:27
PROVIDERS: ATTEND Internal Medicine
DX: G47.33 Obstructive sleep apnea (adult) (pediatric) (principal); Z79.82 Long term (current) use of aspirin
CPT/HCPCS: 95810